=== PATIENT | male | born 1950 | race Caucasian/White ===

== ENCOUNTER 2019-01-14 06:59 | Emergency (ER) | payer OTHER ==
[~2019-01-14] VITALS: Ht 182.9 cm; Wt 111.1 kg
[2019-01-14] MEDS ORDERED: ZESTRIL20 MG PO (07:24)
[2019-01-14] MEDS ORDERED: MICROZIDE12.5 MG PO (07:24)
[2019-01-14] MEDS ORDERED: PRAVASTATIN SOD40 MG PO (07:25)
[2019-01-14] MEDS ORDERED: FORTAMET500 MG PO (07:26)
[2019-01-14] MEDS ORDERED: TENORMIN25 MG PO (07:31)
== END 2019-01-14 10:58 | disposition home or self-care (01) ==
LOC: ER 06:59
DX: R19.5 Other fecal abnormalities (principal)

== ENCOUNTER → 2019-11-19 | Emergency (ER) | payer OTHER ==
[~2019-11-19] VITALS: Ht 182.9 cm; Wt 106.6 kg
[~2019-11-19] MED LIST: FORTAMET500 MG PO; JANUMET 50-5001 EACH; MICROZIDE12.5 MG PO; PRAVASTATIN SOD40 MG PO; TENORMIN25 MG PO; ZESTRIL20 MG PO
== END | disposition left against medical advice (07) ==
LOC: ER 15:43
DX: Z53.20 Procedure and treatment not carried out because of patient's decision for unspecified reasons (principal)